=== PATIENT | male | born 1945 | race Caucasian/White ===

== ENCOUNTER 2023-12-17 11:59 | Day surgery (SDC) | payer MEDICARE, BC ==
[~2023-12-17] VITALS: Ht 190.5 cm; Wt 101.9 kg
[~2023-12-17 11:59] MED LIST: BAYE81TA10 PO; CIDA500T2 PO; MACUTAB PO; THERTAB52 PO
[2023-12-17] MEDS ORDERED: LR 1,000 ML IV SCH ×2 (12:15→15:20)
[2023-12-17] MEDS ORDERED: LIDOCAINE 2% 100MG/5ML SDV (FOR ANES.) As Ordered ONE (12:57)
[2023-12-17] MEDS ORDERED: ROCURONIUM BROMIDE 50MG/5ML VIAL As Ordered ONE (12:57)
[2023-12-17] MEDS ORDERED: ONDANSETRON 4MG 2ML VIAL As Ordered ONE (12:57)
[2023-12-17] MEDS ORDERED: propofoL 200 MG/20 ML VIAL As Ordered ONE (12:57)
[2023-12-17] MEDS ORDERED: fentaNYL 100 MCG/2 ML INJECTION As Ordered ONE (12:58)
[2023-12-17] MEDS: ceFAZolin SOD 2 GM in IV 1 EA IV ONE (13:29)
[2023-12-17] MEDS: HEPARIN SOD (PORCINE) 5000UNITS/ML 1ML VIAL/SYRINGE SQ ONE (13:37)
[2023-12-17] MEDS ORDERED: ACETAMINOPHEN 1000MG 100ML IV BAG As Ordered ONE (13:47)
[2023-12-17] MEDS ORDERED: LABETALOL 100MG/20ML VIAL As Ordered ONE (14:11)
[2023-12-17] MEDS ORDERED: SUGAMMADEX SODIUM 500 MG/5 ML VIAL (BRIDION) As Ordered ONE (14:24)
[2023-12-17] MEDS ORDERED: ONDANSETRON 4MG 2ML VIAL IV PRN (15:20)
[2023-12-17] MEDS ORDERED: fentaNYL 100 MCG/2 ML INJECTION IV PRN (15:20)
[2023-12-17] MEDS ORDERED: HYDR-3713 PO (15:31)
[2023-12-17 16:31] VITALS: BP 162/78
[2023-12-17] MEDS: LABETALOL 100MG/20ML VIAL IV PRN (16:31)
[2023-12-17 18:08] VITALS: BP 152/88; TEMP 98.9; O2SAT 96
== END 2023-12-17 18:56 | disposition home or self-care (01) ==
LOC: M SDC 11:59
PROVIDERS: ATTEND Surgery
DX: K40.90 Unilateral inguinal hernia, without obstruction or gangrene, not specified as recurrent (principal); I48.91 Unspecified atrial fibrillation; Z79.899 Other long term (current) drug therapy; Z79.82 Long term (current) use of aspirin; Z90.49 Acquired absence of other specified parts of digestive tract; Z87.891 Personal history of nicotine dependence
CPT/HCPCS: 49650; C1781; J0131; J0665; J0690; J1100; J1920; J2405; J3010

== ENCOUNTER → 2025-01-02 | Outpatient (CLI) | payer MEDICARE, BC ==
[~2025-01-02] MED LIST changes: +HYDR-3713 PO
== END ==
LOC: M SOG 06:48
PROVIDERS: ATTEND Orthopaedic Surgery
DX: M25.552 Pain in left hip (principal)